=== PATIENT | male | born 1995 | race Caucasian/White ===

== ENCOUNTER 2019-03-11 13:10 | Emergency (ER) | payer OTHER ==
[~2019-03-11] VITALS: Ht 177.8 cm; Wt 77.1 kg
[2019-03-11] MEDS ORDERED: IBUP800 PO (14:02)
== END 2019-03-11 14:14 | disposition home or self-care (01) ==
LOC: ER 13:10
DX: S93.601A Unspecified sprain of right foot, initial encounter (principal); F17.200 Nicotine dependence, unspecified, uncomplicated; W22.8XXA Striking against or struck by other objects, initial encounter; M79.671 Pain in right foot
CPT/HCPCS: 73630; 99283-25